=== PATIENT | male | born 1985 | race Caucasian/White ===

== ENCOUNTER 2021-05-09 17:24 | Emergency (ER) | payer MEDICAID ==
[~2021-05-09] VITALS: Ht 188 cm; Wt 97.0 kg
[2021-05-09 17:40] VITALS: BP 130/75
[2021-05-09] MEDS ORDERED: TETANUS, DIPHTHERIA, PERTUSSIS VAC/PF 0.5ML (>7YR OLD) IM ONE (18:00)
[2021-05-09] MEDS ORDERED: BACITRACIN ZINC OINT UDPKT TOP ONE (18:00)
[2021-05-09] MEDS ORDERED: IBUPROFEN 600MG TABLET PO ONE (18:00)
[2021-05-09] MEDS ORDERED: IBUP-2028 MT (18:06)
[2021-05-09] MEDS ORDERED: SULF1TAB48 MT (18:06)
[2021-05-09] MEDS ORDERED: CEPH500C2 MT (18:06)
== END 2021-05-09 18:31 | disposition home or self-care (01) ==
LOC: ER 17:24
DX: L02.413 Cutaneous abscess of right upper limb (principal)
CPT/HCPCS: 90471; 90715; 99283